=== PATIENT | male | born 1985 | race Caucasian/White ===

== ENCOUNTER 2019-01-27 15:38 | Emergency (ER) | payer OTHER ==
[~2019-01-27] VITALS: Ht 172.7 cm; Wt 145.1 kg
--- NOTE | 2019-01-27 15:58 | NUR ---
ARRIVAL PT ARRIVED AMBULATORY TO ER 4. PT STATES FOR PAST 6-8 WEEKS GETS A "BULGE" IN HIS RIGHT LOWER QUADRANT AFTER EATING OR DRINKING. PT STATES THEN VOMITS "USUALLY ABOUT 20 MINUTES AFTER EATING OR DRINKING". PT DENIES ANY PAIN, STATING "ITS JUST UNCOMFORTABLE BUT NOT PAINFUL. NO ACUTE DISTRESS NOTED. EDP NOTIFIED OF PT ARRIVAL.
[2019-01-27] MEDS ORDERED: NS 1000ML 1,000 ML IV STA (16:13)
[2019-01-27] MEDS ORDERED: ZOFRAN IV STA (16:13)
--- NOTE | 2019-01-27 16:13 | ER.PDOC ---
General Chief Complaint: Requesting Medical Care Stated Complaint: ABD PAIN/ N/V Time seen by MD: 16:05 Source: patient Exam Limitations: no limitations History of Present Illness Initial Comments Pain on RLQ on and off for about 6-8 weeks, nausea and vomiting, also on and off. States he feels a bulge when vomiting Timing/Duration: constant, getting worse, changing over time Severity/Quality: moderate Radiation: RUQ, RLQ Associated Symptoms: nausea/vomiting Exacerbated by: food Relieved By: nothing Allergies: Coded Allergies: No Known Allergies (Unverified , 01/22/14) Home Meds No Active Prescriptions or Reported Meds Vital Signs First Vital Signs Date Time Temp Pulse Resp B/P (MAP) Pulse Ox O2 Delivery O2 Flow Rate FiO2 01/27/19 15:58 98.6 87 16 97 Room Air 01/27/19 16:14 142/89 (106) Last Vital Signs Date Time Temp Pulse Resp B/P (MAP) Pulse Ox O2 Delivery O2 Flow Rate FiO2 01/27/19 16:14 98.6 87 16 142/89 (106) 97 Room Air Past Medical History Surgical History: other (Had surgery when he was 6 weeks old, but, does not know what that was) Social History Smoking: greater than 1 pack/day Alcohol Use: heavy Constitutional: see HPI Gastrointestinal: see HPI All Other Systems: Reviewed and Negative Physical Exam General Appearance: No Apparent Distress, WD/WN HEENT: PERRL/EOMI, Normal ENT Inspection, TMs Normal, Pharynx Normal Neck: Non-Tender, Full Range of Motion, Supple, Normal Inspection Respiratory: chest non-tender, lungs clear, normal breath sounds, no respiratory distress, no accessory muscle use Cardiovascular: Normal Peripheral Pulses, Regular Rate, Rhythm, No Edema, No Gallop, No JVD, No Murmur Gastrointestinal: Normal Bowel Sounds, No Organomegaly, Tenderness (RLQ, RUQ) Male Genitalia: Normal Genitalia, No Hernia Back: Normal Inspection, No CVA Tenderness, No Vertebral Tenderness Extremities: Normal Range of Motion, Non-Tender, Normal Inspection, No Pedal Edema, No Calf Tenderness, Normal Capillary Refill, Pelvis Stable 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, No Motor/Sensory Deficits, Alert, Normal Mood/Affect, Oriented x 3 Skin: Normal Color, Warm/Dry Lymphatic: No Adenopathy Results/Orders Results/Orders Vital Signs Date Time Temp Pulse Resp B/P (MAP) Pulse Ox O2 Delivery O2 Flow Rate FiO2 01/27/19 16:14 98.6 87 16 142/89 (106) 97 Room Air 01/27/19 15:58 98.6 87 16 97 Room Air Administered Medications Medications (Trade) Dose Ordered Sig/Edson Route PRN Reason Start Time Stop Time Status Last Admin Dose Admin Ondansetron HCl (Zofran) 4 mg STAT STAT IV 01/27/19 16:13 01/27/19 16:15 DC 01/27/19 16:56 4 MG Sodium Chloride 1,000 ml @ 1,000 mls/hr Q1H STAT IV 01/27/19 16:13 01/27/19 17:12 DC 01/27/19 16:55 1,000 MLS/HR Laboratory Tests Test 01/27/19 16:25 01/27/19 18:30 White Blood Count 6.6 10^3/uL (4.5-11.0) Red Blood Count 4.71 10^6/uL (4.50-5.90) Hemoglobin 15.8 g/dL (13.9-16.3) Hematocrit 47.3 % (37.0-53.0) Mean Corpuscular Volume 100.4 fL (78-100) H Mean Corpuscular Hemoglobin 33.5 pg (26-34) Mean Corpuscular Hemoglobin Concent 33.4 g/dL (33-37) Red Cell Distribution Width 14.1 % (11.5-14.5) Platelet Count 162 10^3/uL (150-400) Mean Platelet Volume 10.4 fL (7.8-11.0) Neutrophils (%) (Auto) 60.5 % (41.0-85.0) Lymphocytes (%) (Auto) 25.8 % (24.0-44.0) Monocytes (%) (Auto) 11.2 % (5.0-12.0) Neutrophils # (Auto) 4.0 10^3/uL (1.8-7.7) Lymphocytes # (Auto) 1.7 10^3/uL (1.0-4.8) Monocytes # (Auto) 0.7 10^3/uL (0.3-0.8) Absolute Immature Granulocyte (auto 0.01 10^3 u/L (0-2) Immature Granulocytes % 0.20 % (0.00-0.50) Eosinophils % 1.7 % (0.0-5.0) Basophils % 0.6 % (0.0-0.2) H Basophils # 0.0 10^3/uL (0.0-0.1) Eosinophil Count 0.1 10^3/uL (0.0-0.2) Prothrombin Time 11.6 SEC (9.4-11.5) H Prothrombin Time INR (Non-Therap) 1.1 Activated Partial Thromboplast Time 25.0 SEC (24.67-30.72) Sodium Level 142 mmol/L (132-145) Potassium Level 3.8 mmol/L (3.6-5.2) Chloride Level 107.0 mmol/L (96-109) Carbon Dioxide Level 23.4 mmol/L (20.0-32) Anion Gap 15.4 Blood Urea Nitrogen 10 mg/dL (7-18) Creatinine 1.21 mg/dL (0.59-1.40) Estimated GFR () 83.6 (>/=60) BUN/Creatinine Ratio 8.0 Glucose Level 139 mg/dL (70-110) H Calcium Level 9.7 mg/dL (8.4-10.5) Total Bilirubin 1.8 mg/dL (0.2-1.0) H Aspartate Amino Transferase (AST) 122 U/L (0-35) H Alanine Aminotransferase (ALT) 119 U/L (12-78) H Alkaline Phosphatase 130 U/L (50-136) Total Protein 8.3 g/dL (6.4-8.2) H Albumin 3.4 g/dL (3.4-5.0) Globulin 4.9 Amylase Level 19 U/L (25-115) L Lipase 116 U/L (114-286) Urine Collection Type VOID Urine Color DARK YELLOW (YELLOW) H Urine Appearance CLEAR (CLEAR) Urine Bilirubin 1 MG/DL (NEGATIVE) H Urine Ictotest NEGATIVE (NEGATIVE) Urine Ketones NEGATIVE (NEGATIVE) Urine Specific [place] 1.025 (1.005-1.035) Urine pH 5 (5.0-6.0) Urine Protein 15 mg/dL (NEGATIVE) H Urine Urobilinogen 12.0 (NEGATIVE) H Urine Nitrate NEGATIVE (NEGATAIVE) Urine Leukocyte Esterase 25 /uL TRACE (NEGATIVE) Urine Blood NEGATIVE (NEGATIVE) Urine RBC NONE SEEN RBC/HPF (NONE Urine WBC 2-5 WBC/HPF (0-2) Urine Squamous Epithelial Cells RARE #/HPF (FEW) Urine Bacteria RARE (NONE SEEN) Urine Other RARE MUCUS #/HPF Urine Glucose NORMAL (NEGATIVE) Progress Progress I Assumed care of pt from DR Morales @ 7 pm pt is stable and wants to go home CT abd no acute findings noted Course Vitals & review Data Vital Sign - Last 24 Hours 01/27/19 01/27/19 15:58 16:14 Temp 98.6 98.6 Pulse 87 87 Resp 16 16 B/P (MAP) 142/89 (106) Pulse Ox 97 97 O2 Delivery Room Air Room Air Laboratory Tests Test 01/27/19 16:25 01/27/19 18:30 White Blood Count 6.6 10^3/uL Red Blood Count 4.71 10^6/uL Hemoglobin 15.8 g/dL Hematocrit 47.3 % Mean Corpuscular Volume 100.4 fL Mean Corpuscular Hemoglobin 33.5 pg Mean Corpuscular Hemoglobin Concent 33.4 g/dL Red Cell Distribution Width 14.1 % Platelet Count 162 10^3/uL Mean Platelet Volume 10.4 fL Neutrophils (%) (Auto) 60.5 % Lymphocytes (%) (Auto) 25.8 % Monocytes (%) (Auto) 11.2 % Neutrophils # (Auto) 4.0 10^3/uL Lymphocytes # (Auto) 1.7 10^3/uL Monocytes # (Auto) 0.7 10^3/uL Absolute Immature Granulocyte (auto 0.01 10^3 u/L Immature Granulocytes % 0.20 % Eosinophils % 1.7 % Basophils % 0.6 % Basophils # 0.0 10^3/uL Eosinophil Count 0.1 10^3/uL Prothrombin Time 11.6 SEC Prothrombin Time INR (Non-Therap) 1.1 Activated Partial Thromboplast Time 25.0 SEC Sodium Level 142 mmol/L Potassium Level 3.8 mmol/L Chloride Level 107.0 mmol/L Carbon Dioxide Level 23.4 mmol/L Anion Gap 15.4 Blood Urea Nitrogen 10 mg/dL Creatinine 1.21 mg/dL Estimated GFR () 83.6 BUN/Creatinine Ratio 8.0 Glucose Level 139 mg/dL Calcium Level 9.7 mg/dL Total Bilirubin 1.8 mg/dL Aspartate Amino Transf (AST/SGOT) 122 U/L Alanine Aminotransferase (ALT/SGPT) 119 U/L Alkaline Phosphatase 130 U/L Total Protein 8.3 g/dL Albumin 3.4 g/dL Globulin 4.9 Amylase Level 19 U/L Lipase 116 U/L Urine Collection Type VOID Urine Color DARK YELLOW Urine Appearance CLEAR Urine Bilirubin 1 MG/DL Urine Ictotest NEGATIVE Urine Ketones NEGATIVE Urine Specific [place] 1.025 Urine pH 5 Urine Protein 15 mg/dL Urine Urobilinogen 12.0 Urine Nitrate NEGATIVE Urine Leukocyte Esterase 25 /uL TRACE Urine Blood NEGATIVE Urine RBC NONE SEEN RBC/HPF Urine WBC 2-5 WBC/HPF Urine Squamous Epithelial Cells RARE #/HPF Urine Bacteria RARE Urine Other RARE MUCUS #/HPF Urine Glucose NORMAL Departure Time of Disposition: 19:34 Disposition: 01 HOME, SELF-CARE Impression: Primary Impression: Abdominal pain Condition: Stable Referrals: PCP,UNKNOWN (PCP) PRIMARY CARE PROVIDER Scripts No Active Prescriptions or Reported Meds Duration or Time Spent with Pa: 10 mins Problem Qualifiers Primary Impression: Abdominal pain Abdominal location: right lower quadrant Qualified Codes: R10.31 - Right lower quadrant pain SYDNEY MORALES MD Jan 27, 2019 16:13 SHMUEL BOWERS MD Jan 27, 2019 19:37
[2019-01-27 16:14] VITALS: BP 142/89
[2019-01-27 16:32] LABS: BASOPHIL % 0.6 % (0.0-0.2); EOSINOPHIL # 0.1 10^3/uL (0.0-0.2); EOSINOPHIL % 1.7 % (0.0-5.0); HEMOGLOBIN 15.8 g/dL (13.9-16.3); LYMPHOCYTES # 1.7 10^3/uL (1.0-4.8); LYMPHOCYTES % 25.8 % (24.0-44.0); MEAN CELL HGB 33.5 pg (26-34); MEAN CELL HGB CONCENTRATION 33.4 g/dL (33-37); MEAN CORP VOLUME 100.4 fL (78-100); MEAN PLATELET VOLUME 10.4 fL (7.8-11.0); MONOCYTES # 0.7 10^3/uL (0.3-0.8); MONOCYTES % 11.2 % (5.0-12.0); NEUTROPHILS % 60.5 % (41.0-85.0); RED CELL DISTRIBUTION WIDTH 14.1 % (11.5-14.5); WHITE BLOOD CELL 6.6 10^3/uL (4.5-11.0)
[2019-01-27] MEDS ORDERED: NS 1000ML 1,000 ML ONE (16:45)
--- NOTE | 2019-01-27 16:45 | DIREP ---
PROCEDURE:CHEST 1 VIEW COMPARISON:[facility], [place], XRAY CHEST SINGLE VW, 07/21/2015, 05:28 PM. INDICATIONS:Abdominal pain, cough, smoking FINDINGS: LUNGS/PLEURA:No significant pulmonary parenchymal abnormalities. No effusions. VASCULATURE:Normal. Unremarkable pulmonary vasculature. CARDIAC:Normal. No cardiac silhouette abnormality or cardiomegaly. MEDIASTINUM:Normal. No visible mass or adenopathy. BONES:Normal. No fracture or visible bony lesion. OTHER:Negative. CONCLUSION:No acute disease. No significant change has occurred. Dictated by: Ministerio Sidhu MD on 01/27/2019 at 04:43 PM
[2019-01-27] MEDS ORDERED: ZOFRAN ONE (16:46)
[2019-01-27 16:50] LABS: CALCIUM 9.7 mg/dL (8.4-10.5); CARBON DIOXIDE 23.4 mmol/L (20.0-32)
[2019-01-27 18:48] LABS: BILIRUBIN,URINE 1 MG/DL (NEGATIVE)
[2019-01-27 18:54] LABS: APPEARANCE,URINE CLEAR (CLEAR); UA COLOR DARK YELLOW (YELLOW)
--- NOTE | 2019-01-27 19:19 | DIREP ---
PROCEDURE:CT ABDOMEN/PELVIS W/ CONTRAST COMPARISON:None. INDICATIONS:RLQ pain TECHNIQUE:Axial images were created through the abdomen and pelvis with non-ionic intravenous contrast material. Oral contrast was administered. Sagittal and coronal reconstructions were performed from source images. FINDINGS: LUNG BASES:Normal. No visible pulmonary or pleural disease. LIVER:Diffusely diminished hepatic attenuation consistent with geographic hepatic steatosis. BILIARY:Normal. No visible dilatation or calcification. PANCREAS:Normal. No lesion, fluid collection, ductal dilatation, or atrophy. SPLEEN:Normal. No enlargement or focal lesion. ADRENALS:Normal. No mass or enlargement. URINARY TRACT:Normal. No focal lesions or hydronephrosis. AORTA/VASCULAR:Normal. No aneurysm. RETROPERITONEUM:Prominent number of nonenlarged retroperitoneal/celiac lymph nodes. BOWEL/MESENTERY:Appendix not identified. No pericecal inflammatory changes. ABDOMINAL WALL:Normal. No mass or hernia. PELVIC ORGANS:Small fat containing right inguinal hernia or spermatic cord lipoma. BONES:Mild lower thoracic degenerative disc disease with multiple endplate Schmorl's nodes. OTHER:Negative. CONCLUSION: 1. Hepatic steatosis. 2. Appendix not visualized. No pericecal inflammatory changes. 3. Small fat containing right inguinal hernia suspected versus right spermatic cord lipoma. Dictated by: Onel Bernard MD on 01/27/2019 at 07:13 PM
[2019-01-27 19:32] VITALS: BP 137/88
== END 2019-01-27 19:40 | disposition home or self-care (01) ==
LOC: ER 15:38
DX: R10.31 Right lower quadrant pain (principal); R11.2 Nausea with vomiting, unspecified; F17.210 Nicotine dependence, cigarettes, uncomplicated; Z79.899 Other long term (current) drug therapy
CPT/HCPCS: 36415; 71045; 74177; 80053; 81000; 82150; 83690; 85025; 85610; 85730; 87086; 96361; 96374; 99285; J2405; J7030; Q9963; Q9965